=== PATIENT | male | born 1950 | race Caucasian/White ===

== ENCOUNTER 2016-06-13 16:05 | Observation (INO) | payer OTHER ==
[~2016-06-13] VITALS: Ht 180.3 cm; Wt 123.4 kg
[~2016-06-13 16:05] MED LIST: ADULT LOW DOSE81 M1 PO; ALTACE10 MG PO; ALTACE5 MG PO; AMOXICILLIN-CL1 EACH; ASCORBIC ACID500 M3 PO; ASMANEX HFA13 G1 IH; AVELOX400 MG; AZITHROMYCIN250 MG; B COMPLETE1 EACH PO; BREO ELLIPTA I1 EACH IH; BUMETANIDE0.5 MG PO; BUMEX1 MG PO; BUSPAR5 MG PO; CEFDINIR300 MG PO; CIPRO500 MG PO; CLOPIDOGREL75 MG PO; COENZYME Q1030 MG PO; COMPAZINE10 MG; COUMADIN5 MG PO; COUMADIN7.5 MG PO; CYANOCOBALAM1000 MCG PO; FIORICET,ESG1 TABLET PO; FLUCONAZOLE100 MG; FOLIC ACID0.8 MG PO; FOLIC ACID1 MG PO; FUROSEMIDE20 MG; IMDUR30 MG PO; ISOSORBIDE DINI10 MG PO; LASIX40 MG PO; LIPITOR40 MG PO; LIPITOR80 MG PO; LOPRESSOR100 M1 PO; MELOXICAM7.5 MG; METOLAZONE2.5 MG PO; METOPROLOL SUC100 MG PO; METOPROLOL TART50 MG PO; MONOKET10 MG PO; OMEPRAZOLE40 M1 PO; ONE DAILY FOR1 EAC2 PO; PERCOCET 5/31 TABLET PO; PLAVIX75 MG PO; PRADAXA150 MG; PREDNISONE20 MG; PROAIR HFA8.5 GM; PROAIR HFA8.5 GM IH; PROTONIX40 MG PO; RANITIDINE HCL300 MG; SENTRY MULTIVI1 EACH PO; SERTRALINE HCL50 MG PO; SPIRONOLACTONE25 MG PO; SUPREP BOWEL P354 ML; TOPROL XL100 MG PO; TRILIPIX135 MG; TRILIPIX135 MG PO; VITAMIN B-6100 MG PO; VITAMIN B-COMP1 EAC3 PO; WARFARIN SODIUM2 MG PO; WELLBUTRIN SR150 MG PO; XARELTO 20 MG TABLET
[2016-06-13 16:47] LABS: HEMATOCRIT 34.2 % (38.0-50.0); MCH 25.8 PG (29.0-34.0); MCHC 31.6 G/DL (30.0-36.0); MCV 81.8 FL (86-99); MEAN PLAT.VOLUME 9.7 uM^3 (9.0-12.4); PLATELET COUNT 199 K/uL (156-360); RBC DIS.WIDTH-CV 16.4 % (11.8-14.6); RBC DIS.WIDTH-SD 48.1 % (39-53); RED BLOOD COUNT 4.18 M/uL (4.00-5.50); WHITE BLOOD COUNT 7.4 K/uL (4.1-10.2)
[2016-06-13 16:56] LABS: INTER. NORMALIZED RATIO 2.2; PROTHROMBIN TIME 22.5 (9.2-11.2); PTT 34.5 (25-32)
[2016-06-13 16:59] LABS: EOSINOPHIL COUNT 0.2 K/uL (0-0.3); IMMATURE GRANULOCYTE (%) 0.5 % (0.0-0.7); IMMATURE GRANULOCYTE COUNT 0.4 K/uL; LYMPHOCYTE COUNT 1.4 K/uL (1.0-2.8); MONOCYTE (%) 7.7 % (3-12); MONOCYTE COUNT 0.6 K/uL (0-0.8); NEUTROPHIL (%) 70.6 % (45-76); NEUTROPHIL COUNT 5.2 K/uL (1.8-6.4)
[2016-06-13 17:02] LABS: CHLORIDE 104 mEq/L (99-109); POTASSIUM 4.1 mEq/L (3.7-5.4); SODIUM 138 mEq/L (136-147)
[2016-06-13 17:03] LABS: GLUCOSE 79 mg/dL (70-99)
[2016-06-13 17:05] LABS: ANION GAP 10 MEQ/L (2-14)
[2016-06-13 17:07] LABS: GFR ESTIMATE (CALCULATED) 50 mL/min/
[2016-06-13 17:08] LABS: TROP-I INTERPRETATION NEGATIVE; TROPONIN-I 0.01 ng/mL (0.0-0.30); UREA NITROGEN (BUN) 23 mg/dL (9-23)
[2016-06-13] MEDS ORDERED: TOPROL XL100 MG PO (18:49)
[2016-06-13] MEDS ORDERED: TYLENOL EXTRA500 MG PO (18:50)
[2016-06-13] MEDS ORDERED: VENTOLIN HFA18 GM IH (18:50)
[2016-06-13] MEDS ORDERED: ADVAIR 250/501 DISK IH (18:50)
[2016-06-13] MEDS ORDERED: B-100 COMPLEX100 MG PO (18:51)
[2016-06-13 21:05] VITALS: BP 114/74
[2016-06-14] VITALS: BP 94/53
[2016-06-14 04:06] VITALS: BP 106/64
[2016-06-14 08:23] VITALS: BP 107/71
[2016-06-14 12:03] VITALS: BP 93/62
[2016-06-14 12:07] LABS: TROP-I INTERPRETATION NEGATIVE; TROPONIN-I 0.01 ng/mL (0.0-0.30)
[2016-06-14 14:06] LABS: ANION GAP 10 MEQ/L (2-14); CHLORIDE 103 MEQ/L (99-109); GFR ESTIMATE (CALCULATED) > 59 mL/min/; POTASSIUM 3.8 MEQ/L (3.7-5.4); SAMPLE HEMOLYSIS CHECK 0; SAMPLE ICTERIC CHECK 0; SAMPLE LIPEMIA CHECK 0; SODIUM 141 MEQ/L (136-147); UREA NITROGEN (BUN) 21 mg/dL (9-23)
[2016-06-14 14:11] LABS: GLUCOSE 149 mg/dL (70-99)
== END 2016-06-14 16:15 | disposition home or self-care (01) ==
LOC: EME 16:05 → 5WEST 19:45 → EDOF 19:45 → 5WEST 20:53
PROVIDERS: Emergency Medicine; Hospitalist
DX: I95.1 Orthostatic hypotension (principal); I25.10 Atherosclerotic heart disease of native coronary artery without angina pectoris; Z98.61 Coronary angioplasty status; E78.5 Hyperlipidemia, unspecified; F32.9 Major depressive disorder, single episode, unspecified; F41.9 Anxiety disorder, unspecified; K21.9 Gastro-esophageal reflux disease without esophagitis; I48.0 Paroxysmal atrial fibrillation; I48.2 Chronic atrial fibrillation; I42.0 Dilated cardiomyopathy; E11.22 Type 2 diabetes mellitus with diabetic chronic kidney disease; I12.9 Hypertensive chronic kidney disease with stage 1 through stage 4 chronic kidney disease, or unspecified chronic kidney disease; N18.3 Chronic kidney disease, stage 3 (moderate); Z87.891 Personal history of nicotine dependence; Z79.01 Long term (current) use of anticoagulants; Z79.02 Long term (current) use of antithrombotics/antiplatelets; I25.2 Old myocardial infarction; G47.33 Obstructive sleep apnea (adult) (pediatric); Z91.19 Patient's noncompliance with other medical treatment and regimen; J44.9 Chronic obstructive pulmonary disease, unspecified; Z95.810 Presence of automatic (implantable) cardiac defibrillator; Z82.5 Family history of asthma and other chronic lower respiratory diseases; Z80.9 Family history of malignant neoplasm, unspecified; Z88.8 Allergy status to other drugs, medicaments and biological substances
CPT/HCPCS: 71010; 80048; 81003; 83880; 84484; 85025; 85610; 85730; 93005; 94640; 94640 76; 99202; 99281; 99285; G0378

== ENCOUNTER 2017-01-12 12:49 | Emergency (ER) | payer OTHER ==
[~2017-01-12] VITALS: Ht 180.3 cm; Wt 125.3 kg
[~2017-01-12 12:49] MED LIST changes: +ADVAIR 250/501 DISK IH; +B-100 COMPLEX100 MG PO; +TYLENOL EXTRA500 MG PO; +VENTOLIN HFA18 GM IH
[2017-01-12 14:03] LABS: EOSINOPHIL (%) 1.9 % (0-5); EOSINOPHIL COUNT 0.1 K/uL (0-0.3); HEMATOCRIT 32.4 % (38.0-50.0); IMMATURE GRANULOCYTE (%) 0.1 % (0.0-0.7); INSTRUMENT ABS NEUTROPHIL CT 5.1 K/uL; LYMPHOCYTE COUNT 0.9 K/uL (1.0-2.8); MCH 23.6 PG (29.0-34.0); MCHC 30.9 G/DL (30.0-36.0); MCV 76.6 FL (86-99); MEAN PLAT.VOLUME 9.6 uM^3 (9.0-12.4); MONOCYTE (%) 8.8 % (3-12); MONOCYTE COUNT 0.6 K/uL (0-0.8); NEUTROPHIL (%) 75.2 % (45-76); NEUTROPHIL COUNT 5.1 K/uL (1.8-6.4); PLATELET COUNT 213 K/uL (156-360); RBC DIS.WIDTH-CV 17.5 % (11.8-14.6); RED BLOOD COUNT 4.23 M/uL (4.00-5.50); WHITE BLOOD COUNT 6.8 K/uL (4.1-10.2)
[2017-01-12 14:08] LABS: INTER. NORMALIZED RATIO 3.9; PROTHROMBIN TIME 45.8 SEC (10.2-12.9)
[2017-01-12 14:13] LABS: CHLORIDE 102 mEq/L (99-109); POTASSIUM 3.7 mEq/L (3.7-5.4); SODIUM 136 mEq/L (136-147)
[2017-01-12 14:16] LABS: GLUCOSE 107 mg/dL (70-99)
[2017-01-12 14:17] LABS: ANION GAP 11 MEQ/L (2-14)
[2017-01-12 14:18] LABS: TOTAL BILIRUBIN 0.7 mg/dL (0.0-1.0)
[2017-01-12 14:19] LABS: ALKALINE PHOSPHATASE 100 IU/L (3-129); GFR ESTIMATE (CALCULATED) > 59 mL/min/
[2017-01-12 14:21] LABS: DIRECT BILIRUBIN 0.3 mg/dL (0.0-0.3); UREA NITROGEN (BUN) 19 mg/dL (9-23)
[2017-01-12 14:24] LABS: TROP-I INTERPRETATION NEGATIVE; TROPONIN-I < 0.01 ng/mL (0.0-0.30)
[2017-01-12 16:09] LABS: ADD MIUA? NO; BILIRUBIN NEGATIVE; BLOOD NEGATIVE; COLOR STRAW ((YELLOW)); GLUCOSE (STRIP) NEGATIVE; KETONES NEGATIVE; LEUKOCYTES NEGATIVE; NITRITE NEGATIVE; PROTEIN (STRIP) NEGATIVE; SPECIFIC GRAVITY 1.004 (1.000-1.030); UROBILINOGEN 0.2 MG/DL (0.2-1.0)
[2017-01-12 16:11] LABS: UCUL ADDED? NO
[2017-01-12 18:45] VITALS: BP 94/59
== END 2017-01-12 18:47 | disposition home or self-care (01) ==
LOC: EME 12:49
PROVIDERS: Emergency Medicine
DX: I50.9 Heart failure, unspecified (principal); J45.909 Unspecified asthma, uncomplicated; Z95.0 Presence of cardiac pacemaker; Z95.5 Presence of coronary angioplasty implant and graft; Z79.01 Long term (current) use of anticoagulants; Z79.02 Long term (current) use of antithrombotics/antiplatelets; Z87.891 Personal history of nicotine dependence; Z93.3 Colostomy status; Z90.49 Acquired absence of other specified parts of digestive tract
CPT/HCPCS: 71020; 80048; 80076; 81003; 83880; 84484; 85025; 85610; 85730; 93005; 99281; 99285; J1940

== ENCOUNTER 2017-01-29 13:22 | Inpatient (IN) | payer OTHER ==
[~2017-01-29] VITALS: Ht 185.4 cm; Wt 119.6 kg
[~2017-01-29 13:22] MED LIST changes: -BUMETANIDE0.5 MG PO
[2017-01-29 14:17] LABS: BASOPHIL COUNT 0.1 K/uL (0-0.1); EOSINOPHIL (%) 0.1 % (0-5); HEMATOCRIT 32.6 % (38.0-50.0); IMMATURE GRANULOCYTE (%) 0.6 % (0.0-0.7); IMMATURE GRANULOCYTE COUNT 0.1 K/uL; INSTRUMENT ABS NEUTROPHIL CT 10.4 K/uL; LYMPHOCYTE COUNT 1.1 K/uL (1.0-2.8); MCH 23.2 PG (29.0-34.0); MCHC 30.4 G/DL (30.0-36.0); MCV 76.3 FL (86-99); MEAN PLAT.VOLUME 10.1 uM^3 (9.0-12.4); MONOCYTE (%) 9.6 % (3-12); MONOCYTE COUNT 1.3 K/uL (0-0.8); NEUTROPHIL (%) 80.6 % (45-76); NEUTROPHIL COUNT 10.4 K/uL (1.8-6.4); PLATELET COUNT 269 K/uL (156-360); RBC DIS.WIDTH-CV 18.3 % (11.8-14.6); RBC DIS.WIDTH-SD 49.4 % (39-53); RED BLOOD COUNT 4.27 M/uL (4.00-5.50)
[2017-01-29 14:24] LABS: PROTHROMBIN TIME 52.5 SEC (10.2-12.9)
[2017-01-29 14:27] LABS: CHLORIDE 99 mEq/L (99-109); POTASSIUM 3.7 mEq/L (3.7-5.4); SODIUM 137 mEq/L (136-147)
[2017-01-29 14:28] LABS: MAGNESIUM 1.8 mg/dL (1.3-2.7)
[2017-01-29 14:30] LABS: GLUCOSE 113 mg/dL (70-99)
[2017-01-29 14:31] LABS: ANION GAP 13 MEQ/L (2-14)
[2017-01-29 14:32] LABS: TOTAL BILIRUBIN 1.6 mg/dL (0.0-1.0)
[2017-01-29 14:33] LABS: ALKALINE PHOSPHATASE 98 IU/L (3-129); GFR ESTIMATE (CALCULATED) 59 mL/min/
[2017-01-29 14:34] LABS: INTER. NORMALIZED RATIO 4.5
[2017-01-29 14:35] LABS: UREA NITROGEN (BUN) 26 mg/dL (9-23)
[2017-01-29 14:36] LABS: CREATINE KINASE 166 IU/L (1-294); TOTAL CK 166 IU/L (1-294)
[2017-01-29 14:37] LABS: TROP-I INTERPRETATION NEGATIVE; TROPONIN-I 0.02 ng/mL (0.0-0.30)
[2017-01-29 14:42] LABS: CK-MB 1.6 ng/mL (0.0-4.9)
[2017-01-29] MEDS ORDERED: NITROGLYCERIN0.4 MG SL (19:04)
[2017-01-29] MEDS ORDERED: PANTOPRAZOLE SO40 MG PO (19:04)
[2017-01-30 00:31] VITALS: BP 100/66
[2017-01-30 06:28] LABS: HEMATOCRIT 32.5 % (38.0-50.0); MCH 22.8 PG (29.0-34.0); MCHC 29.5 G/DL (30.0-36.0); MCV 77.2 FL (86-99); MEAN PLAT.VOLUME 10.4 uM^3 (9.0-12.4); PLATELET COUNT 237 K/uL (156-360); RBC DIS.WIDTH-CV 18.1 % (11.8-14.6); RBC DIS.WIDTH-SD 49.8 % (39-53); RED BLOOD COUNT 4.21 M/uL (4.00-5.50); WHITE BLOOD COUNT 11.6 K/uL (4.1-10.2)
[2017-01-30 06:51] LABS: INTER. NORMALIZED RATIO 4.4; PROTHROMBIN TIME 51.8 SEC (10.2-12.9)
[2017-01-30 06:52] LABS: ANION GAP 8 MEQ/L (2-14); CHLORIDE 97 MEQ/L (99-109); GFR ESTIMATE (CALCULATED) > 59 mL/min/; GLUCOSE 86 mg/dL (70-99); POTASSIUM 3.4 MEQ/L (3.7-5.4); SAMPLE HEMOLYSIS CHECK 0; SAMPLE ICTERIC CHECK 0; SAMPLE LIPEMIA CHECK 0; SODIUM 135 MEQ/L (136-147); UREA NITROGEN (BUN) 26 mg/dL (9-23)
[2017-01-30 07:22] VITALS: BP 107/67
[2017-01-30 11:22] VITALS: BP 112/74
[2017-01-30 16:41] VITALS: BP 110/70
[2017-01-30 23:49] VITALS: BP 120/65
[2017-01-31 03:52] VITALS: BP 103/64
[2017-01-31] MEDS ORDERED: CEFDINIR300 MG PO (06:34)
[2017-01-31 06:38] LABS: PROTHROMBIN TIME 53.2 SEC (10.2-12.9)
[2017-01-31 06:46] LABS: INTER. NORMALIZED RATIO 4.5
[2017-01-31 07:38] VITALS: BP 109/58
== END 2017-01-31 09:59 | disposition home or self-care (01) | DRG 194 ==
LOC: EME 13:22 → 5EAST 21:53 → EDOF 21:53 → ENRESERV 21:54 → CANRESERV 21:54 → ENRESERV 22:04 → 5EAST 23:53 → ENPENDDIS 01-31 → 5EAST 01-31 09:59
PROVIDERS: Emergency Medicine; Internal Medicine
DX: J11.00 Influenza due to unidentified influenza virus with unspecified type of pneumonia (principal); J44.9 Chronic obstructive pulmonary disease, unspecified; I11.0 Hypertensive heart disease with heart failure; I50.22 Chronic systolic (congestive) heart failure; I48.0 Paroxysmal atrial fibrillation; I27.20 Pulmonary hypertension, unspecified; I25.10 Atherosclerotic heart disease of native coronary artery without angina pectoris; E78.5 Hyperlipidemia, unspecified; G47.33 Obstructive sleep apnea (adult) (pediatric); I25.5 Ischemic cardiomyopathy; K21.9 Gastro-esophageal reflux disease without esophagitis; R09.02 Hypoxemia; F32.9 Major depressive disorder, single episode, unspecified; F41.9 Anxiety disorder, unspecified; E66.9 Obesity, unspecified; Z68.34 Body mass index [BMI] 34.0-34.9, adult; Z91.19 Patient's noncompliance with other medical treatment and regimen; I25.2 Old myocardial infarction; Z95.5 Presence of coronary angioplasty implant and graft; Z95.0 Presence of cardiac pacemaker; Z79.01 Long term (current) use of anticoagulants; Z79.02 Long term (current) use of antithrombotics/antiplatelets; Z93.3 Colostomy status; Z87.891 Personal history of nicotine dependence
CPT/HCPCS: 71020; 80048; 80053; 82550; 82553; 83605; 83735; 83880; 84484; 85025; 85027; 85610; 85730; 93005; 94640; 94640 76; 99202; 99281; 99285; J0696; J1940; J7050; J7512

== ENCOUNTER 2017-04-05 15:03 | Emergency (ER) | payer OTHER ==
[~2017-04-05] VITALS: Ht 180.3 cm; Wt 120.2 kg
[~2017-04-05 15:03] MED LIST changes: +NITROGLYCERIN0.4 MG SL; +PANTOPRAZOLE SO40 MG PO
[2017-04-05 17:35] LABS: HEMATOCRIT 34.2 % (38.0-50.0); MCH 22.9 PG (29.0-34.0); MCHC 30.4 G/DL (30.0-36.0); MCV 75.2 FL (86-99); MEAN PLAT.VOLUME 10.1 uM^3 (9.0-12.4); PLATELET COUNT 246 K/uL (156-360); RBC DIS.WIDTH-CV 18.7 % (11.8-14.6); RBC DIS.WIDTH-SD 50.7 % (39-53); RED BLOOD COUNT 4.55 M/uL (4.00-5.50); WHITE BLOOD COUNT 13.9 K/uL (4.1-10.2)
[2017-04-05 17:39] LABS: ADD MIUA? NO; BILIRUBIN NEGATIVE; BLOOD NEGATIVE; COLOR YELLOW ((YELLOW)); GLUCOSE (STRIP) NEGATIVE; KETONES NEGATIVE; LEUKOCYTES NEGATIVE; NITRITE NEGATIVE; PROTEIN (STRIP) NEGATIVE; SPECIFIC GRAVITY 1.011 (1.000-1.030); UCUL ADDED? NO; UROBILINOGEN 0.2 MG/DL (0.2-1.0)
[2017-04-05 17:47] LABS: CHLORIDE 101 mEq/L (99-109); POTASSIUM 4.5 mEq/L (3.7-5.4); SODIUM 137 mEq/L (136-147)
[2017-04-05 17:49] LABS: GLUCOSE 136 mg/dL (70-99)
[2017-04-05 17:50] LABS: ANION GAP 11 MEQ/L (2-14)
[2017-04-05 17:51] LABS: TOTAL BILIRUBIN 0.8 mg/dL (0.0-1.0)
[2017-04-05 17:53] LABS: ALKALINE PHOSPHATASE 121 IU/L (3-129); GFR ESTIMATE (CALCULATED) 50 mL/min/ (58.99-99999)
[2017-04-05 17:54] LABS: UREA NITROGEN (BUN) 25 mg/dL (9-23)
[2017-04-05 22:28] VITALS: BP 107/63
== END 2017-04-05 22:30 | disposition home or self-care (01) ==
LOC: EME 15:03
PROVIDERS: Physician Assistant Medical
PROC: 0T9B70Z Drainage of Bladder with Drainage Device, Via Natural or Artificial Opening (ICD-10-PCS; principal; 2017-04-05)
DX: R50.9 Fever, unspecified (principal); R33.9 Retention of urine, unspecified; I50.9 Heart failure, unspecified; J45.909 Unspecified asthma, uncomplicated; K21.9 Gastro-esophageal reflux disease without esophagitis; F41.9 Anxiety disorder, unspecified; F32.9 Major depressive disorder, single episode, unspecified; I25.2 Old myocardial infarction; Z93.3 Colostomy status; Z90.49 Acquired absence of other specified parts of digestive tract; Z87.891 Personal history of nicotine dependence; Z88.8 Allergy status to other drugs, medicaments and biological substances
CPT/HCPCS: 71010; 74177; 80053; 81003; 83605; 85027; 87040; 87502; 87651 90; 99281; 99285; J7030

== ENCOUNTER 2017-08-16 08:31 | Observation (INO) | payer OTHER ==
[~2017-08-16] VITALS: Ht 180.3 cm; Wt 121.0 kg
[2017-08-16 10:01] LABS: BASOPHIL (%) 0.5 % (0-1); EOSINOPHIL (%) 1.1 % (0-5); EOSINOPHIL COUNT 0.1 K/uL (0-0.3); HEMATOCRIT 28.5 % (38.0-50.0); HEMOGLOBIN 8.4 G/DL (12.5-16.6); IMMATURE GRANULOCYTE (%) 0.3 % (0.0-0.7); LYMPHOCYTE (%) 13.8 % (15-42); LYMPHOCYTE COUNT 0.9 K/uL (1.0-2.8); MCH 21.1 PG (29.0-34.0); MCHC 29.5 G/DL (30.0-36.0); MCV 71.6 FL (86-99); MONOCYTE (%) 8.5 % (3-12); MONOCYTE COUNT 0.5 K/uL (0-0.8); NEUTROPHIL (%) 75.8 % (45-76); NEUTROPHIL COUNT 4.7 K/uL (1.8-6.4); PLATELET COUNT 218 K/uL (156-360); RBC DIS.WIDTH-CV 19.3 % (11.8-14.6); RBC DIS.WIDTH-SD 49.7 % (39-53); RED BLOOD COUNT 3.98 M/uL (4.00-5.50); WHITE BLOOD COUNT 6.2 K/uL (4.1-10.2)
[2017-08-16 10:05] LABS: CHLORIDE 103 mEq/L (99-109); POTASSIUM 3.6 mEq/L (3.7-5.4)
[2017-08-16 10:06] LABS: SODIUM 140 mEq/L (136-147)
[2017-08-16 10:07] LABS: GLUCOSE 129 mg/dL (70-99)
[2017-08-16 10:11] LABS: CREATININE 1.2 mg/dL (0.6-1.3); GFR ESTIMATE (CALCULATED) > 59 mL/min/ (58.99-99999)
[2017-08-16 10:12] LABS: UREA NITROGEN (BUN) 18 mg/dL (9-23)
[2017-08-16 10:23] LABS: TROP-I INTERPRETATION NEGATIVE; TROPONIN-I 0.02 ng/mL (0.0-0.30)
[2017-08-16] MEDS ORDERED: BUPROPION HCL150 M2 PO (12:31)
[2017-08-16] MEDS ORDERED: BUMEX1 MG PO (12:33)
[2017-08-16] MEDS ORDERED: VENTOLIN HFA18 GM IH (12:36)
[2017-08-16] MEDS ORDERED: COUMADIN2 MG PO (12:37)
[2017-08-16] MEDS ORDERED: COUMADIN5 MG PO (12:37)
[2017-08-16 14:41] VITALS: BP 105/70
[2017-08-16 14:46] LABS: INTER. NORMALIZED RATIO 3.2
[2017-08-16 16:25] LABS: TROP-I INTERPRETATION NEGATIVE; TROPONIN-I 0.04 ng/mL (0.0-0.30)
[2017-08-16 19:23] VITALS: BP 114/69
[2017-08-16 22:15] LABS: TROP-I INTERPRETATION NEGATIVE; TROPONIN-I 0.02 ng/mL (0.0-0.30)
[2017-08-16 23:28] VITALS: BP 104/67
[2017-08-17 03:30] VITALS: BP 115/75
[2017-08-17 05:36] LABS: HEMATOCRIT 27.6 % (38.0-50.0); HEMOGLOBIN 7.9 G/DL (12.5-16.6); INTER. NORMALIZED RATIO 2.9; MCH 20.5 PG (29.0-34.0); MCHC 28.6 G/DL (30.0-36.0); MCV 71.7 FL (86-99); PLATELET COUNT 210 K/uL (156-360); RBC DIS.WIDTH-CV 19.2 % (11.8-14.6); RBC DIS.WIDTH-SD 49.3 % (39-53); RED BLOOD COUNT 3.85 M/uL (4.00-5.50); WHITE BLOOD COUNT 7.2 K/uL (4.1-10.2)
[2017-08-17 05:58] LABS: CHLORIDE 103 MEQ/L (99-109); CREATININE 1.2 MG/DL (0.6-1.3); GFR ESTIMATE (CALCULATED) > 59 mL/min/ (58.99-99999); GLUCOSE 102 mg/dL (70-99); POTASSIUM 3.7 MEQ/L (3.7-5.4); SODIUM 138 MEQ/L (136-147); UREA NITROGEN (BUN) 20 mg/dL (9-23)
[2017-08-17 07:40] VITALS: BP 144/64
== END 2017-08-17 09:58 | disposition home or self-care (01) ==
LOC: EME 08:31 → EDOF 11:15 → ENRESERV 11:20 → 4SOUTH 14:15 → ENPENDDIS 08-17 08:36 → 4SOUTH 08-17 09:58
PROVIDERS: Emergency Medicine; Hospitalist
DX: R07.9 Chest pain, unspecified (principal); I11.0 Hypertensive heart disease with heart failure; I50.9 Heart failure, unspecified; E78.5 Hyperlipidemia, unspecified; I25.10 Atherosclerotic heart disease of native coronary artery without angina pectoris; I48.2 Chronic atrial fibrillation; D64.9 Anemia, unspecified; I25.5 Ischemic cardiomyopathy; I25.2 Old myocardial infarction; Z95.810 Presence of automatic (implantable) cardiac defibrillator; Z95.5 Presence of coronary angioplasty implant and graft; Z93.3 Colostomy status; Z90.49 Acquired absence of other specified parts of digestive tract; Z87.19 Personal history of other diseases of the digestive system; Z79.01 Long term (current) use of anticoagulants; E11.9 Type 2 diabetes mellitus without complications; Z87.891 Personal history of nicotine dependence; Z82.49 Family history of ischemic heart disease and other diseases of the circulatory system
CPT/HCPCS: 71045; 80048; 83880; 84484; 85025; 85027; 85610; 93005; 94640; 99281; 99285; G0378; J3010